=== PATIENT | male | born 1985 | race Two or more races ===

== ENCOUNTER 2023-02-23 18:57 | Emergency (ER) | payer OTHER, SELFPAY ==
--- NOTE | ~2023-02-23 | CT_ITS ---
EXAMINATION: CT ABDOMEN AND PELVIS WITH CONTRAST CLINICAL INFORMATION: Epigastric pain. History of EtOH. COMPARISON: None available. TECHNIQUE: Multidetector volumetric images were obtained from the superior aspect of the liver through the pubic symphysis following administration 85 mL of Omnipaque 350 intravenous contrast. Sagittal and coronal reformatted images were obtained on the technologist's workstation. Oral contrast: No This CT examination was performed using dose optimization techniques as appropriate, variously including the following: *Automated exposure control *Adjustment of mA and/or kV according to patient size (this includes techniques or standardized protocols for targeted exams where dose is matched to indication/reason for exam; i.e. extremities or head) *Use of iterative reconstruction technique DLP: 668 mGy-cm FINDINGS: LUNG BASES: The visualized lung bases are unremarkable. LIVER, GALLBLADDER, AND BILIARY TREE: Nodular hepatic Contour with normal attenuation and size. Trace perihepatic ascites. No biliary ductal dilatation or focal lesion. The gallbladder is contracted with no evidence of radiopaque gallstones, gallbladder wall thickening, or obvious pericholecystic inflammatory changes. PANCREAS: Unremarkable. SPLEEN: Enlarged spleen measuring 17 cm CC dimension. No focal lesion. ADRENAL GLANDS: Unremarkable. KIDNEYS AND URETERS: The kidneys are normal in size, shape, and attenuation. No hydronephrosis, hydroureter, or calculi seen. No perinephric stranding. BLADDER: Unremarkable. GASTROINTESTINAL TRACT: Prominent paraesophageal varices. The stomach is unremarkable. Normal caliber small bowel. No obstruction. No colonic wall thickening or acute abnormality seen. No free air. ABDOMINAL WALL: No significant hernia is appreciated. LYMPH NODES: Normal. VASCULAR: Prominent varices throughout the abdomen. The portal vein is patent. PELVIC VISCERA: The prostate and seminal vesicles are unremarkable. OSSEOUS STRUCTURES: No acute or suspicious osseous abnormality. Bilateral L5 pars defects. Bilateral femoral head avascular necrosis. CT/CT abdomen pelvis w IV con IMPRESSION: 1. Cirrhotic liver with sequela of portal hypertension including splenomegaly and prominent varices. 2. No acute findings in the abdomen or pelvis. No inflammatory changes. 3. Bilateral femoral head avascular necrosis. Fleischner guidelines were followed.
[2023-02-23 19:09] VITALS: BP 131/71; PULSE 112; RESP 18; TEMP 36.9; O2SAT 97; BMI 31.3
--- NOTE | 2023-02-23 19:12 | ED.GENADULT ---
HPI - General Adult General Chief complaint: Abdominal Pain Stated complaint: Hernia? abd pain/burning Time Seen by Provider: 02/23/23 20:54 History of Present Illness HPI narrative: Seen by Dr. Magana Related Data Allergies Allergy/AdvReac Type Severity Reaction Status Date / Time tramadol Allergy Hives Verified 02/23/23 19:09 [facility] Social History Social History Alcohol intake: former Smoked in Last 30 Days: No Use of substances other than those prescribed or required for medical reasons: No Advance Directives: No Advance Directives Information Provided: No Physical Exam ED Vital Signs: BMI result Body Mass Index 31.3 Course Course Course Narrative: RME: 37 yold male presents to the ED for periumbilical pain and thinks he has a hernia. patient states normal bowel movement. Denies any nausea or Symptoms. labs ordered. Medications Administered Discontinued Medications Generic Name Dose Route Start Last Admin Trade Name Freq PRN Reason Stop Dose Admin Sodium Chloride 1,000 mls @ 999 mls/hr 02/23/23 21:15 02/23/23 23:12 Ns IV 02/23/23 22:15 Infused .Q1H1M LOUISE Infusion Iohexol 100 ml 02/23/23 21:29 02/23/23 21:29 Iohexol 350 Mg/Ml 100 Ml Infus..Btl IV 02/23/23 21:30 85 ml ONCE ONE Administration Medical Decision Making Lab Data 02/23/23 19:59 02/23/23 19:59 Labs: Lab Results 02/23/23 02/23/23 02/23/23 Range/Units 19:59 19:59 20:01 WBC 2.4 L (4.8-10.8) X10*3/uL RBC 3.88 L (4.60-5.80) X10*6/uL Hgb 11.6 L (14.0-18.0) g/dl Hct 34.7 L (42.0-52.0) % MCV 89.4 (80.0-98.0) fL MCH 29.9 (27.0-33.0) pg MCHC 33.4 (31.0-36.0) g/dl RDW 16.6 H (11.0-16.0) % Plt Count 35 L (160-400) X10*3/uL MPV 11.0 (9.4-12.4) fL Immature Gran % (Auto) 0.4 (0.0-0.4) % Neut % (Auto) 53.7 (45-73) % Lymph % (Auto) 24.6 (20-40) % [place] % (Auto) 18.4 H (2-11) % Eos % (Auto) 2.5 (0-4) % Baso % (Auto) 0.4 (0-2) % Lymph # (Auto) 0.6 L (1.2-4.9) X10*3/uL [place] # (Auto) 0.5 (0.1-1.2) X10*3/uL Eos # (Auto) 0.1 (0.0-0.4) X10*3/uL Baso # (Auto) 0.0 (0.0-0.2) X10*3/uL Abs Immat Gran (auto) 0.01 (0.00-0.03) X10*3/uL Absolute Neuts (auto) 1.3 L (2.0-8.3) x10*3/uL Absolute Nucleated RBC 0.000 (0.0-0.012) X10*3/uL Nucleated RBC % (auto) 0.0 (0.0-0.2) /100WBC Smear Tech's Comments VERIFIED Smear Path Review SEE NOTE Sodium 140 (135-145) mmol/L Potassium 4.1 (3.3-5.1) mmol/L Chloride 110 H (96-108) mmol/L Carbon Dioxide 22 (22-29) mmol/L Anion Gap 12 (12-20) BUN 8 L (9-16) mg/dL Creatinine 0.72 (0.5-1.4) mg/dL Estim Creat Clear Calc 150.8 Estimated GFR > 60 Random Glucose 91 (60-115) mg/dL Calcium 8.9 (8.4-10.2) mg/dL Total Bilirubin 3.6 H (0.0-1.0) mg/dL AST 89 H (5-37) U/L ALT 43 H (0-40) U/L Alkaline Phosphatase 161 H (39-117) U/L Total Protein 7.0 (6.5-8.0) g/dL Albumin 3.3 L (3.5-5.0) g/dL Lipase 23 (8-78) U/L Urine Color Dark Yellow Urine Appearance Clear Urine pH 8.5 (5.0-9.0) Ur Specific [place] 1.015 (1.005-1.025) Urine Protein Negative (Neg-Trace) mg/dL Urine Glucose (UA) Negative (Negative) mg/dL Urine Ketones Negative (Negative) mg/dL Urine Blood Negative (Negative) Urine Nitrite Negative (Negative) Ur Leukocyte Esterase Trace H (Negative) Urine RBC 0-2 (0-2) /HPF Urine WBC 0-5 (0-5) /HPF Ur Squamous Epith Cells 0-2 (0-2) /HPF Urine Bacteria None Seen (None Seen) Hyaline Casts 0-2 (0-2) /LPF Discharge Plan Discharge Clinical Impression: Abdominal pain, Cirrhosis of liver Patient Disposition: Home, Self-Care Instructions: Cirrhosis (ED), Abdominal Pain (ED) Referrals: Lucy Bryant [Other] Interventions: ED Discharge Assessment Last Done: 02/23/23 23:18 Discharge Date/Time: 02/23/23 23:19
[2023-02-23 19:44] VITALS: BP 121/76; PULSE 92; RESP 18; O2SAT 96
--- NOTE | 2023-02-23 19:45 | PC.NURSE ---
Assumed care of pt. pt sitting on stretcher, c/o lennie umbilical pain 8/10. on assessment, noted small lump around pumbilicus, able to be reduced without difficulty. pt with hx of alcohol cirrhosis, gastric complications. Pt looking up most recent labs since primary care in [place]. VSS, pending labs and urine.
[2023-02-23 19:50] VITALS: BP 123/68; PULSE 90; RESP 20; TEMP 36.8; O2SAT 97
[2023-02-23 20:07] LABS: Basophils Percent Auto 0.4 % (0-2); Eosinophils Absolute Auto 0.1 X10*3/uL (0.0-0.4); Eosinophils Percent Auto 2.5 % (0-4); Hematocrit 34.7 % (42.0-52.0); Hemoglobin 11.6 g/dl (14.0-18.0); Imm Gran Abs Auto 0.01 X10*3/uL (0.00-0.03); Imm Gran Pct Auto 0.4 % (0.0-0.4); Lymphocytes Absolute Auto 0.6 X10*3/uL (1.2-4.9); Lymphocytes Percent Auto 24.6 % (20-40); MANUAL DIFF FLAG SCAN; Mean Corpuscular HGB Conc 33.4 g/dl (31.0-36.0); Mean Corpuscular Hemoglobin 29.9 pg (27.0-33.0); Mean Corpuscular Volume 89.4 fL (80.0-98.0); Monocytes Absolute Auto 0.5 X10*3/uL (0.1-1.2); Monocytes Percent Auto 18.4 % (2-11); Neutrophils Absolute Auto 1.3 x10*3/uL (2.0-8.3); Neutrophils Percent Auto 53.7 % (45-73); Red Blood Count 3.88 X10*6/uL (4.60-5.80); Red Cell Distribution Width 16.6 % (11.0-16.0); SCAN SMEAR FLAG 1
[2023-02-23 20:08] LABS: Appearance Urine Clear; Color Urine Dark Yellow; Glucose Urine UA Negative (Negative); Leukocyte Esterase Urine Trace (Negative); Nitrite Urine Negative (Negative); PH 8.5 (5.0-9.0); Specific Gravity - Urine 1.015 (1.005-1.025); UMIC TRIGGER UACC YES; Urine Blood Negative (Negative); Urine Ketones Negative (Negative); Urine Protein Negative (Neg-Trace)
[2023-02-23 20:11] LABS: Bacteria Urine None Seen (None Seen); Hyaline Casts Urine 0-2 /LPF (0-2); RBC Urine 0-2 /HPF (0-2); Squamous Epithelial Cell Urine 0-2 /HPF (0-2); WBC Urine 0-5 /HPF (0-5)
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
[2023-02-23 20:37] LABS: Platelet Count 35 X10*3/uL (160-400); White Blood Count 2.4 X10*3/uL (4.8-10.8)
[2023-02-23 20:39] LABS: SLIDE REVIEW VERIFIED
[2023-02-23 20:46] LABS: Albumin Level 3.3 g/dL (3.5-5.0); Anion Gap 12 (12-20); Calcium 8.9 mg/dL (8.4-10.2); Carbon Dioxide 22 mmol/L (22-29); Chloride 110 mmol/L (96-108); Potassium 4.1 mmol/L (3.3-5.1); Sodium 140 mmol/L (135-145)
--- NOTE | 2023-02-23 20:54 | ED_ITS ---
HPI - Abdominal Pain General Chief Complaint: Abdominal Pain Stated Complaint: Hernia? abd pain/burning Time Seen by Provider: 02/23/23 20:54 History of Present Illness HPI narrative: Patient is a 37-year-old male presents today with having abdominal pain he had the abdominal pain is in the epigastric area. Not associated with any vomiting. It has been on and off. It has been ongoing for a few weeks. No specific trigger. Patient had a long history of drinking has not drank alcohol about a week. Patient denies any abdominal surgery in the past. Is passing gas. Had some mild nausea associated with these symptoms. He is from home. Not associated with chest pain shortness of breath or diaphoresis. No new medication. Related Data Allergies Allergy/AdvReac Type Severity Reaction Status Date / Time tramadol Allergy Hives Verified 02/23/23 19:09 Review of Systems Review of Systems Okay no fever no chills positive abdominal pain in the epigastric area Yes all other systems are reviewed and are negative PMFSH Past Medical History Attestation statement: The following information was validated with the patient. Social History Social History Alcohol intake: former Smoked in Last 30 Days: No Use of substances other than those prescribed or required for medical reasons: No Advance Directives: No Advance Directives Information Provided: No Physical Exam ED Vital Signs: Vital Signs - 24 hr 02/23/23 19:09 02/23/23 19:44 02/23/23 19:50 Temperature 98.5 F 98.3 F Pulse Rate 112 H 92 90 Respiratory Rate 18 18 20 Blood Pressure 131/71 121/76 123/68 Pulse Oximetry 97 96 97 Oxygen Delivery Method Room Air Room Air BMI result Body Mass Index 31.3 Appearance: Alert. Oriented X3. No acute distress. Eyes: Pupils equal, round and reactive to light. ENT: Pharynx normal. Neck: Normal inspection. Neck supple. No lymph nodes noted. No crepitus CVS: Normal heart rate and rhythm. Pulses normal. Normal S1 and S2 Respiratory: No respiratory distress. Breath sounds normal. No Wheezing. No r ales Abdomen: Soft and nontender. No rigidity. No distention. good BS x4 Skin: Skin warm and dry. Normal skin color. Normal skin turgor. Extremities: No lower extremity edema. Neurovascular intact to all extremities. No Lacerations. No Rash Neuro: Oriented X 3. No motor deficit. No sensory deficit. Moving all extermities. No slurred speech Medical Decision Making Medical Decision Making [facility] Narrative: Patient is 37 years old presents today with having epigastric pain with a history of liver cirrhosis. Differential include gallbladder issue, pancreatitis, gastritis, hernia. Patient stated he had a mass in the epigastric area is subsequently disappeared. It is not associated with any nausea vomiting. CT scan of the abdomen showed no acute evidence of obstruction, abscess, perforation. Patient is from home. Patient's LFTs are elevated with elevated bilirubin of 3.6. AST ALT that was elevated AST more elevated than ALT consistent with previous alcohol use. Patient's lab from [facility] was reviewed. Patient had on his phone. It showed an elevated bilirubin in the 2.5 range. S ignificantly elevated AST and ALT as well. This is more likely from chronic alcohol use. Patient urine showed no signs of infection. Will discharge patient home. Close follow-up on an outpatient basis. Differential Diagnosis Gallbladder issue, pancreatitis, gastritis, obstruction, abscess, perforation Lab Data [facility] Lab Attestation statement: I reviewed the patient's lab results. 02/23/23 19:59 02/23/23 19:59 Labs: Lab Results 02/23/23 02/23/23 02/23/23 Range/Units 19:59 19:59 20:01 WBC 2.4 L (4.8-10.8) X10*3/uL RBC 3.88 L (4.60-5.80) X10*6/uL Hgb 11.6 L (14.0-18.0) g/dl Hct 34.7 L (42.0-52.0) % MCV 89.4 (80.0-98.0) fL MCH 29.9 (27.0-33.0) pg MCHC 33.4 (31.0-36.0) g/dl RDW 16.6 H (11.0-16.0) % Plt Count 35 L (160-400) X10*3/uL MPV 11.0 (9.4-12.4) fL Immature Gran % (Auto) 0.4 (0.0-0.4) % Neut % (Auto) 53.7 (45-73) % Lymph % (Auto) 24.6 (20-40) % [place] % (Auto) 18.4 H (2-11) % Eos % (Auto) 2.5 (0-4) % Baso % (Auto) 0.4 (0-2) % Lymph # (Auto) 0.6 L (1.2-4.9) X10*3/uL [place] # (Auto) 0.5 (0.1-1.2) X10*3/uL Eos # (Auto) 0.1 (0.0-0.4) X10*3/uL Baso # (Auto) 0.0 (0.0-0.2) X10*3/uL Abs Immat Gran (auto) 0.01 (0.00-0.03) X10*3/uL Absolute Neuts (auto) 1.3 L (2.0-8.3) x10*3/uL Absolute Nucleated RBC 0.000 (0.0-0.012) X10*3/uL Nucleated RBC % (auto) 0.0 (0.0-0.2) /100WBC Smear Tech's Comments VERIFIED Sodium 140 (135-145) mmol/L Potassium 4.1 (3.3-5.1) mmol/L Chloride 110 H (96-108) mmol/L Carbon Dioxide 22 (22-29) mmol/L Anion Gap 12 (12-20) BUN 8 L (9-16) mg/dL Creatinine 0.72 (0.5-1.4) mg/dL Estim Creat Clear Calc 150.8 Estimated GFR > 60 Random Glucose 91 (60-115) mg/dL Calcium 8.9 (8.4-10.2) mg/dL Total Bilirubin 3.6 H (0.0-1.0) mg/dL AST 89 H (5-37) U/L ALT 43 H (0-40) U/L Alkaline Phosphatase 161 H (39-117) U/L Total Protein 7.0 (6.5-8.0) g/dL Albumin 3.3 L (3.5-5.0) g/dL Lipase 23 (8-78) U/L Urine Color Dark Yellow Urine Appearance Clear Urine pH 8.5 (5.0-9.0) Ur Specific [place] 1.015 (1.005-1.025) Urine Protein Negative (Neg-Trace) mg/dL Urine Glucose (UA) Negative (Negative) mg/dL Urine Ketones Negative (Negative) mg/dL Urine Blood Negative (Negative) Urine Nitrite Negative (Negative) Ur Leukocyte Esterase Trace H (Negative) Urine RBC 0-2 (0-2) /HPF Urine WBC 0-5 (0-5) /HPF Ur Squamous Epith Cells 0-2 (0-2) /HPF Urine Bacteria None Seen (None Seen) Hyaline Casts 0-2 (0-2) /LPF Radiology Impression Discussion of test interpretation with radiology: I have reviewed the radiologist's reading. Medications Administered Discontinued Medications Generic Name Dose Route Start Last Admin Trade Name Freq PRN Reason Stop Dose Admin Sodium Chloride 1,000 mls @ 999 mls/hr 02/23/23 21:15 02/23/23 21:18 Ns IV 02/23/23 22:15 999 mls/hr .Q1H1M LOUISE Administration Iohexol 100 ml 02/23/23 21:29 02/23/23 21:29 Iohexol 350 Mg/Ml 100 Ml Infus..Btl IV 02/23/23 21:30 85 ml ONCE ONE Administration Discharge Plan Discharge Clinical Impression: Abdominal pain, Cirrhosis of liver Patient Disposition: Home, Self-Care Instructions: Abdominal Pain (ED), Cirrhosis (ED) Referrals: Lucy Bryant [Other]
[2023-02-23 20:58] LABS: Glucose Random 91 mg/dL (60-115)
[2023-02-23 21:04] LABS: Alanine Aminotransferase 43 U/L (0-40); Alkaline Phosphatase 161 U/L (39-117); Aspartate Amino Transferase 89 U/L (5-37); Bilirubin Total 3.6 mg/dL (0.0-1.0); Blood Urea Nitrogen 8 mg/dL (9-16); Creatinine Clr Calc Pharmacy 150.8; Estimated Glomerular Filt Rate > 60; Lipase 23 U/L (8-78)
[2023-02-23] MEDS: 0.9 % Sodium Chloride 1,000 ML 999 ML IV (21:18)
[2023-02-23] MEDS: iohexoL 350 MG/ML 100 ML INFUS..BTL IV (21:29)
== END 2023-02-23 23:19 | disposition home or self-care (01) ==
PROVIDERS: Physician Assistant; Emergency Provider Emergency Medicine Emergency Medical Services; PCP Internal Medicine
DX: K74.60 Unspecified cirrhosis of liver (principal); R10.30 Lower abdominal pain, unspecified; Z79.899 Other long term (current) drug therapy
CPT/HCPCS: 36415; 74177; 80053; 81001; 83690; 85025; 96360; 96361; 99284; Q9967

== ENCOUNTER 2023-04-22 08:16 | Emergency (ER) | payer OTHER, SELFPAY ==
--- NOTE | 2023-04-22 | ECG_ITS ---
Test Reason : FALL Blood Pressure : / mmHG Vent. Rate : 077 BPM Atrial Rate : 077 BPM P-R Int : 158 ms QRS Dur : 158 ms QT Int : 504 ms P-R-T Axes : 042 -23 009 degrees QTc Int : 570 ms Normal sinus rhythm with sinus arrhythmia Right bundle branch block Abnormal ECG No previous ECGs available Referred By: Julieth Estrada Electronically Signed By:Jamshid Mata
--- NOTE | ~2023-04-22 | CT_ITS ---
CT ANGIOGRAM NECK WITH CONTRAST CT ANGIOGRAM BRAIN WITH CONTRAST CLINICAL INFORMATION: Hearing loss/nystagmus. COMPARISON: Head CT 04/22/2023. TECHNIQUE: Test bolus sequences followed by intravenous administration 70 mL of Omnipaque 350. Helical imaging was performed in the axial plane from the thoracic inlet to the skull vertex. Delayed postcontrast imaging of the head was also performed. The data was processed at the sleep lab technologist workstation for generation of MIP sequences. Angled MIPs and volume rendered reformatted images were also generated at an offline 3D workstation under concurrent supervision. Stenoses are assessed in accordance with NASCET criteria unless otherwise indicated. This CT examination was performed using dose optimization techniques as appropriate, variously including the following: *Automated exposure control *Adjustment of mA and/or kV according to patient size (this includes techniques or standardized protocols for targeted exams where dose is matched to indication/reason for exam; i.e. extremities or head) *Use of iterative reconstruction technique FINDINGS: BRAIN: [There is no intracranial hemorrhage, hydrocephalus, extra-axial surface collection, midline shift, or other herniation pattern. Albrecht to white matter differentiation is diffusely maintained without evidence of an evolved acute territorial infarct. The basilar cisterns are preserved. No significant soft tissue abnormality. No acute osseous abnormality. The paranasal sinuses and the mastoid air cells are well aerated.] CERVICAL SOFT TISSUES AND LUNG APICES: [Unremarkable. ] NECK CTA: [There is a classic 3 vessel configuration of the aortic arch. Proximal arch vessels are non-stenotic. The vertebral arteries are codominant. No significant ostial stenosis is visualized on either side. Both vertebral arteries are widely patent throughout their extracranial cervical course. Both common and internal carotid arteries are normal in course and caliber.] BRAIN CTA: [There is normal opacification of major intracranial arteries. No focal flow-limiting stenosis nor discrete proximal large artery occlusion. Limited assessment of the intracranial arterial vasculature at the high convexity due to motion artifact. No aneurysm. Timing of the contrast bolus allows assessment of the major dural venous sinuses, which all opacify normally] CT/CT angio head neck IMPRESSION: Unremarkable CTA of the head and neck. Limited assessment of the intracranial arterial vasculature at the high convexity due to motion artifact. Findings confirmed with Julieth Estrada APRN at 1:05pm on 04/22/2023.
--- NOTE | ~2023-04-22 | MR_ITS ---
EXAMINATION: MR BRAIN WITHOUT AND WITH CONTRAST CLINICAL INFORMATION: New ataxia and left-sided hearing loss, history of liver disease COMPARISON: CT angiography head and neck 04/22/2023 TECHNIQUE: Multiplanar, multisequence imaging was obtained without and with intravenous contrast. Intravenous contrast: 9 mL Gadavist. FINDINGS: There is T1 hyperintensity within the left membranous labyrinth involving the cochlea and vestibule with loss of the normal fluid signal intensity in the cochlea and slightly attenuated fluid signal intensity of the vestibule on the high-resolution axial FIESTA sequence. Please note the presence of intrinsic T1 shortening limits assessment for intralabyrinthine enhancement. The right VII and VIII cranial nerve complex is normal normal. No cerebellopontine angle lesion. No acute infarct. No acute intracranial hemorrhage or extra-axial fluid collection. Mild lateral and third ventriculomegaly suggestive of mild global cerebral volume loss greater than expected for age. Nonspecific mild T2 FLAIR hyperintensity within the peritrigonal white matter. Symmetric intrinsic T1 shortening within the bilateral basal ganglia and cerebral peduncles. No abnormal intraparenchymal or leptomeningeal enhancement. No mass effect or herniation pattern. Normal appearance of the midline structures. Normal appearance of the imaged intracranial arterial and dural venous sinus flow voids. The orbits are grossly unremarkable. Mild patchy paranasal sinus mucosal disease most pronounced in the ethmoid air cells. The craniocervical junction is intact. Patchy T1 hypointense marrow signal and diffusion signal abnormality throughout the osseous structures may be related to hypercellularity of hematopoetic marrow, which can be seen in the setting of anemia or other marrow infiltrative process and can be correlated with CBC. MR/MR head/brain wo/w con IMPRESSION: 1. T1 hyperintensity within the left membranous labyrinth involving the cochlea and vestibule with corresponding attenuated fluid signal intensity on the high-resolution axial FIESTA sequence most compatible with intralabyrinthine hemorrhage. 2. Mild global cerebral volume loss for age. 3. Symmetric intrinsic T1 shortening within the bilateral basal ganglia and cerebral peduncles related to manganese deposition in the setting of known chronic liver disease. 4. Patchy T1 hypointense marrow signal and diffusion signal abnormality throughout the osseous structures may be related to hypercellularity of hematopoetic marrow, which can be seen in the setting of anemia or other marrow infiltrative process and can be correlated with CBC.
--- NOTE | ~2023-04-22 | CT_ITS ---
EXAMINATION: CT HEAD WITHOUT CONTRAST CLINICAL INFORMATION: Dizziness, hearing changes, status post fall. COMPARISON: None available. TECHNIQUE: Contiguous axial imaging was performed from the skull base to vertex without intravenous administration of contrast. Coronal and sagittal reformatted images were obtained. This CT examination was performed using dose optimization techniques as appropriate, variously including the following: *Automated exposure control *Adjustment of mA and/or kV according to patient size (this includes techniques or standardized protocols for targeted exams where dose is matched to indication/reason for exam; i.e. extremities or head) *Use of iterative reconstruction technique DLP: 640 mGy-cm FINDINGS: There is mild widening of the cortical sulci and associated ventriculomegaly. The lateral ventricles are symmetrical. The third and fourth ventricles are in their normal midline position. The basilar and prepontine cisterns are unremarkable. There is no acute intra or extracerebral abnormality. There is no mass effect or midline shift. Sections through the bony calvarium are unremarkable. The orbits are intact. The paranasal sinuses show mild mucosal thickening in the ethmoid sinuses, right greater than left. The mastoid air cells are clear. Hypoaeration of the mastoid air cells bilaterally. CT/CT head/brain wo IV con IMPRESSION: No acute intracranial pathology.
[2023-04-22 08:25] VITALS: BP 112/54; BP 120/80; PULSE 80; PULSE 90; RESP 16; TEMP 36.8; O2SAT 97; O2SAT 98; BMI 32.1
[2023-04-22 08:40] LABS: Glucose, Whole Blood 144 mg/dL (60-115)
--- NOTE | 2023-04-22 08:42 | PC.NURSE ---
BIBA from home. A & Ox3. Pt reports falling this morning w/ sudden onset of loss of hearing in left ear. No LOC / HS. Reported 5/10 headache r/t fall this morning. Neuros intact. Pt reports daily drinker, last drink few beers last night. Hx of cirrhosis. POC 144. VSS.
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
[2023-04-22 09:59] VITALS: BP 121/77; PULSE 77; RESP 17; TEMP 36.8; O2SAT 95
[2023-04-22 10:24] LABS: Basophils Percent Auto 0.5 % (0-2); Hematocrit 34.1 % (42.0-52.0); Hemoglobin 11.3 g/dl (14.0-18.0); Imm Gran Abs Auto 0.02 X10*3/uL (0.00-0.03); Lymphocytes Absolute Auto 0.3 X10*3/uL (1.2-4.9); Lymphocytes Percent Auto 15.4 % (20-40); MANUAL DIFF FLAG SCAN; Mean Corpuscular HGB Conc 33.1 g/dl (31.0-36.0); Mean Corpuscular Hemoglobin 29.4 pg (27.0-33.0); Mean Corpuscular Volume 88.8 fL (80.0-98.0); Monocytes Absolute Auto 0.2 X10*3/uL (0.1-1.2); Monocytes Percent Auto 10.8 % (2-11); Neutrophils Absolute Auto 1.4 x10*3/uL (2.0-8.3); Neutrophils Percent Auto 71.3 % (45-73); PLT CLUMP 1; Red Blood Count 3.84 X10*6/uL (4.60-5.80); SCAN SMEAR FLAG 1
[2023-04-22 10:44] LABS: Platelet Count 20 X10*3/uL (160-400); SLIDE REVIEW VERIFIED
[2023-04-22 10:45] LABS: Ammonia 61 umol/L (13-55)
[2023-04-22 10:48] LABS: Alanine Aminotransferase 81 U/L (0-40); Albumin Level 3.4 g/dL (3.5-5.0); Alkaline Phosphatase 150 U/L (39-117); Anion Gap 12 (12-20); Aspartate Amino Transferase 205 U/L (5-37); Bilirubin Total 3.9 mg/dL (0.0-1.0); Blood Urea Nitrogen 9 mg/dL (9-16); Calcium 8.9 mg/dL (8.4-10.2); Carbon Dioxide 24 mmol/L (22-29); Chloride 106 mmol/L (96-108); Creatinine Clr Calc Pharmacy 157.1; Estimated Glomerular Filt Rate > 60; Glucose Random 152 mg/dL (60-115); Lipase 27 U/L (8-78); Sodium 138 mmol/L (135-145); Total Protein 7.7 g/dL (6.5-8.0)
[2023-04-22] MEDS: iohexoL 350 MG/ML 100 ML INFUS..BTL IV (12:33)
[2023-04-22 13:27] LABS: INTERNATIONAL NORM RATIO 1.4 (0.9-1.1); Prothrombin Time 16.5 SEC (11.1-13.3)
[2023-04-22 13:40] VITALS: BP 137/75; PULSE 84; RESP 13; O2SAT 97
[2023-04-22 13:58] LABS: Appearance Urine Clear; Color Urine Dark Yellow; Glucose Urine UA Negative (Negative); Leukocyte Esterase Urine Negative (Negative); Nitrite Urine Negative (Negative); PH 8.5 (5.0-9.0); Specific Gravity - Urine >= 1.030 (1.005-1.025); Urine Blood Negative (Negative); Urine Ketones Negative (Negative); Urine Protein Trace mg/dL (Neg-Trace)
--- NOTE | 2023-04-22 14:32 | PC.NURSE ---
Patient is sleep, will assess pain when patient wakes up
[2023-04-22 16:24] VITALS: BP 140/74; PULSE 71; RESP 13; TEMP 36.7; O2SAT 98
[2023-04-22 19:19] LABS: Ethanol < 10 mg/dL
[2023-04-22 19:22] LABS: Magnesium 1.6 mg/dL (1.6-2.6)
--- NOTE | 2023-04-22 20:03 | PC.NURSE ---
Pt in MRI at this time, medication administration is delayed.
[2023-04-22] MEDS: 0.9 % Sodium Chloride 1,000 ML 999 ML IV (21:06)
[2023-04-22] MEDS: Meclizine HCl 25 MG TABLET 50 MG PO (21:07)
--- NOTE | 2023-04-22 21:10 | PC.NURSE ---
Pt medicated per nov. Fluids started. plan of care ongoing.
[2023-04-22 21:25] LABS: Amphetamine Screen Urine Not Detected (Not Detect); Barbiturates, Urine Not Detected (Not Detect); Benzodiazepines Screen Urine Not Detected (Not Detect); Cannabinoid Screen Urine Not Detected (Not Detect); Cocaine Screen Urine Not Detected (Not Detect); Fentanyl, urine Not Detected (Not Detect); Opiate Screen Urine Not Detected (Not Detect); Phencyclidine Screen Urine Not Detected (Not Detect)
[2023-04-22 21:45] VITALS: BP 151/77; PULSE 90; RESP 20; TEMP 37.1; O2SAT 99
--- NOTE | 2023-04-22 22:38 | PC.NURSE ---
Attempted to ambulate patient. Pt stood up and reported a lot of dizziness. Pt was very wobbly on his feet and was unable to take more than 3 steps. Pt was assisted back to bed, PA aware. Per PA, pt may stay with us longer.
--- NOTE | 2023-04-22 22:56 | PC.NURSE ---
Pt requesting food and drink, given both. Pt also reporting 8/10 headache, provider aware. plan of care on going.
[2023-04-22] MEDS: diazePAM 2 MG TABLET 4 MG PO (23:13)
[2023-04-22] MEDS: oxyCODONE HCl Immed Release 5 MG TABLET PO (23:13)
--- NOTE | 2023-04-22 23:22 | PC.NURSE ---
Pt medicated per nov. Plan of care ongoing.
[2023-04-23 02:05] VITALS: BP 139/72; PULSE 89; TEMP 36.9; O2SAT 96
[2023-04-23] MEDS: Meclizine HCl 25 MG TABLET PO ×3 (02:30→13:43)
--- NOTE | 2023-04-23 02:31 | PC.NURSE ---
Pt medicated per mar. No sign of distress. plan of care ongoing.
--- NOTE | 2023-04-23 03:00 | PC.NURSE ---
Report given to Rosemarie FOREMAN in overflow, pt will be moved to bed 2
[2023-04-23 06:00] VITALS: BP 155/80; PULSE 88; RESP 17; TEMP 37.1; O2SAT 97
--- NOTE | 2023-04-23 09:08 | PHA.MEDREC ---
Pharmacy Consult ? Medication Reconciliation Pharmacy has completed the medication reconciliation. spoke with patient who had a list of medications on his phone. He explained that he is not supposed to be taking ibuprofen but will take it if he runs out of the oxycodone or is unable to get it.
--- NOTE | 2023-04-23 09:10 | PC.NURSE ---
Resumed care of patient, pharmacy at bedside to complete medrec, provider notified of PRN pain medication orders, no new orders placed at this time. he is a/ox4. PT came to work with patient/
[2023-04-23 09:32] LABS: COVID-19 Test Negative (Negative); IDNOW Serial# BCCEAD1C
--- NOTE | 2023-04-23 10:30 | MHC.RECOVRN ---
This telegraphic typewriter repairer met with patient, patient presented to ED for RYAN, dizziness, tinnitus. Pt resting on left side, sleeping, awake to verbal command. 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 Pt reports in the past, drinking hard alcohol, 20 nips daily for years.. Pt states 2 years ago, April 2021, admitted to hospital for jaundice. Pt states upon d/c, 6 months recovery time [id number]. Pt reports no hx of treatment, no detox, CSS/TSS. Pt reports had tried naltrexone, reports felt like a zombie on it . Pt states currently prescribed Campral by PCP. Pt reports taking Campral 4 times per week, pt states does not take Campral on days is drinking. Pt reports no hx of seizures, AVH. Pt reports hx of ETOH withdrawal s/s tremor, N/V. Pt currently denies ETOH withdrawal. Pt reports feels better after receiving Valium. Pt reports last Friday increased drinking, Friday drank several beers to take the edge off . Pt reports last ETOH use Friday. Pt reports has support system related to recovery, pt reports has not found AA helpful. Addiction/Recovery team to return at bedside to review recovery supports, once pt medically cleared.
[2023-04-23] MEDS: Furosemide 20 MG TABLET PO (11:42)
[2023-04-23] MEDS: Magnesium Oxide 400 MG TABLET PO (11:42)
[2023-04-23] MEDS: Folic Acid 1 MG TABLET PO (11:42)
[2023-04-23] MEDS: busPIRone HCl 5 MG TABLET 15 MG PO (13:43)
[2023-04-23] MEDS: Lactulose 20 GM/30 ML SOLUTION PO (13:43)
[2023-04-23] MEDS: rifAXIMin 550 MG TABLET PO (13:43)
[2023-04-23] MEDS: DULoxetine HCl 60 MG CAPSULE.DR PO (13:43)
--- NOTE | 2023-04-23 13:45 | MHC.CM.ED ---
Received case management consult overnight. Patient came to the ER due to loss of balance, loss of hearing in left ear. Work up essentially negative. Physical therapy eval completed. Acute rehab is recommended. Attempted to meet with patient. Patient currently sleeping. No family present. Copy of HCP obtained from [facility]. Referral broadcasted to acute rehabs in the [place] area (patient's listed address) and [facility]. OT eval ordered and pending. Continue to monitor for d/c needs.
[2023-04-23] MEDS: Spironolactone 25 MG TABLET 5 MG PO (14:11)
[2023-04-23 14:49] VITALS: BP 155/71; PULSE 88; RESP 18; TEMP 36.9; O2SAT 98
--- NOTE | 2023-04-23 15:25 | MHC.CM.ED ---
Met with patient in regards to discharge planning. Patient is declining rehab at this time. He will call his uncle for a ride home. Licha FOREMAN and Lulu SEYMOUR aware. Continue to monitor for d/c needs.
== END 2023-04-23 15:42 | disposition home or self-care (01) ==
PROVIDERS: Physician Assistant; Registered Nurse Emergency; Emergency Provider Emergency Medicine
DX: H81.392 Other peripheral vertigo, left ear (principal); K76.9 Liver disease, unspecified; R26.2 Difficulty in walking, not elsewhere classified; R51.9 Headache, unspecified; R11.2 Nausea with vomiting, unspecified; D69.6 Thrombocytopenia, unspecified; Z20.822 Contact with and (suspected) exposure to COVID-19; Z20.828 Contact with and (suspected) exposure to other viral communicable diseases; Z79.899 Other long term (current) drug therapy
CPT/HCPCS: 36415; 70450; 70496; 70498; 70553; 80053; 80307; 81003; 82140; 82947; 83690; 83735; 85025; 85610; 87635; 93005; 96361; 96374; 97161; 97165; 99285; A9585; Q9967

== ENCOUNTER → 2023-04-22 10:06 | Outpatient (BNV) | payer OTHER, SELFPAY | PROVIDERS: Emergency Provider Emergency Medicine; Visit Provider Internal Medicine Cardiovascular Disease | DX: I49.9 Cardiac arrhythmia, unspecified (principal) | CPT/HCPCS: 93010 ==

== ENCOUNTER 2023-08-08 19:46 | Emergency (ER) | payer OTHER, SELFPAY ==
[2023-08-08 19:51] VITALS: BP 124/58; PULSE 98; RESP 16; TEMP 37.3; O2SAT 95; BMI 31.3
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
--- NOTE | 2023-08-08 20:14 | PC.NURSE ---
triage supplemental: patient states for medical issues client has chronic pain, for psych dx depression and anxiety receives meds at [facility] hastn taken meds for three days hx rx cymbalta, buspar, oxycodone, no recent psych admits for one year 2 mos sober but drank some over holiday reports hearing voices over one week ago when i was up for three days contractas for safety here, reports no plan to hurt self.
[2023-08-08 21:12] LABS: MANUAL DIFF FLAG NO
[2023-08-08 21:14] LABS: Basophils Percent Auto 0.7 % (0-2); Eosinophils Absolute Auto 0.1 X10*3/uL (0.0-0.4); Eosinophils Percent Auto 1.6 % (0-4); Hematocrit 39.2 % (42.0-52.0); Hemoglobin 12.8 g/dl (14.0-18.0); Imm Gran Abs Auto 0.01 X10*3/uL (0.00-0.03); Imm Gran Pct Auto 0.2 % (0.0-0.4); Lymphocytes Percent Auto 21.8 % (20-40); Mean Corpuscular HGB Conc 32.7 g/dl (31.0-36.0); Mean Corpuscular Hemoglobin 29.8 pg (27.0-33.0); Mean Corpuscular Volume 91.2 fL (80.0-98.0); Mean Platelet Volume 10.4 fL (9.4-12.4); Monocytes Absolute Auto 0.6 X10*3/uL (0.1-1.2); Monocytes Percent Auto 12.5 % (2-11); Neutrophils Absolute Auto 2.8 x10*3/uL (2.0-8.3); Neutrophils Percent Auto 63.2 % (45-73); Platelet Count 55 X10*3/uL (160-400); Red Cell Distribution Width 15.6 % (11.0-16.0); White Blood Count 4.4 X10*3/uL (4.8-10.8)
[2023-08-08 21:21] LABS: Amphetamine Screen Urine Not Detected (Not Detect); Barbiturates, Urine Not Detected (Not Detect); Benzodiazepines Screen Urine Not Detected (Not Detect); Cannabinoid Screen Urine Not Detected (Not Detect); Cocaine Screen Urine Not Detected (Not Detect); Fentanyl, urine Not Detected (Not Detect); Opiate Screen Urine Not Detected (Not Detect); Phencyclidine Screen Urine Not Detected (Not Detect)
[2023-08-08 21:25] LABS: Ethanol 207 mg/dL
[2023-08-08 21:28] LABS: Alanine Aminotransferase 99 U/L (0-40); Albumin Level 3.6 g/dL (3.5-5.0); Alkaline Phosphatase 134 U/L (39-117); Anion Gap 12 (12-20); Aspartate Amino Transferase 189 U/L (5-37); Bilirubin Total 2.4 mg/dL (0.0-1.0); Blood Urea Nitrogen 10 mg/dL (9-16); Carbon Dioxide 25 mmol/L (22-29); Chloride 111 mmol/L (96-108); Creatinine Clr Calc Pharmacy 144.8; Estimated Glomerular Filt Rate > 60; Glucose Random 109 mg/dL (60-115); Potassium 3.5 mmol/L (3.3-5.1); Sodium 144 mmol/L (135-145); Total Protein 7.5 g/dL (6.5-8.0)
[2023-08-08 21:29] LABS: Acetaminophen LAB < 3 mcg/mL (<30); Salicylate < 5.0 mg/dL (15-30)
[2023-08-08 22:04] LABS: Ammonia 76 umol/L (13-55)
[2023-08-08 22:05] LABS: Appearance Urine Clear; Color Urine Yellow; Glucose Urine UA Negative (Negative); Leukocyte Esterase Urine Negative (Negative); Nitrite Urine Negative (Negative); Specific Gravity - Urine <= 1.005 (1.005-1.025); Urine Blood Negative (Negative); Urine Ketones Negative (Negative); Urine Protein Negative (Neg-Trace)
[2023-08-08 22:18] LABS: Bacteria Urine None Seen (None Seen); Hyaline Casts Urine 0-2 /LPF (0-2); RBC Urine 0-2 /HPF (0-2); Squamous Epithelial Cell Urine 0-2 /HPF (0-2); WBC Urine 0-5 /HPF (0-5)
--- NOTE | 2023-08-08 23:10 | MHC.CARE ---
Pt has a BAL of 207.He won't be able to be assessed by the CARE team until 1:30am.
--- NOTE | 2023-08-09 01:45 | PC.NURSE ---
care team in with pt
[2023-08-09 01:54] VITALS: BP 128/62; PULSE 87; RESP 17; TEMP 37.3; O2SAT 97
--- NOTE | 2023-08-09 05:37 | PC.NURSE ---
pt oob with cane, gait steady, denies any complaints at this time
[2023-08-09 07:33] VITALS: RESP 16
[2023-08-09] MEDS: Folic Acid 1 MG TABLET PO (11:00)
[2023-08-09] MEDS: Thiamine HCL 100 MG TABLET PO (11:00)
[2023-08-09] MEDS: Magnesium Oxide 400 MG TABLET PO (11:00)
[2023-08-09] MEDS: Furosemide 20 MG TABLET PO (11:00)
[2023-08-09] MEDS: Cholecalciferol (Vitamin D3) 25 MCG TABLET 125 MCG PO (11:00)
[2023-08-09] MEDS: oxyCODONE HCl Immed Release 5 MG TABLET PO ×2 (11:01→18:00)
[2023-08-09] MEDS: Lactulose 20 GM/30 ML SOLUTION PO ×3 (11:08→21:00)
[2023-08-09 12:50] LABS: COVID-19 Test Negative (Negative); IDNOW Serial# 08D9AD1C
[2023-08-09 14:43] VITALS: RESP 17
[2023-08-09] MEDS: DULoxetine HCl 60 MG CAPSULE.DR PO (15:52)
[2023-08-09] MEDS: busPIRone HCl 5 MG TABLET 15 MG PO ×2 (15:52→21:00)
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
--- NOTE | 2023-08-09 19:30 | PC.NURSE ---
patient appears to remain asleep at present respirations are even and unlabored appears in no distress.
[2023-08-09 21:10] VITALS: BP 152/76; PULSE 75; RESP 18; TEMP 36.7; O2SAT 97
[2023-08-10] MEDS: oxyCODONE HCl Immed Release 5 MG TABLET PO (02:25)
[2023-08-10] MEDS: QUEtiapine Fumarate 25 MG TABLET PO (02:25)
[2023-08-10 06:00] VITALS: RESP 16
--- NOTE | 2023-08-10 08:55 | PC.NURSE ---
patient is alert and oriented and able to make needs known. Patient has a good appetite and ate 100% of breakfast. Patient is able to ambulate around unit using assistive cane. Patient advocating for discharge. Denies SI/HI. Patient discharged from facility with belongings.
== END 2023-08-10 08:56 | disposition home or self-care (01) ==
PROVIDERS: Emergency Medicine; Physician Assistant; Emergency Provider Emergency Medicine Emergency Medical Services; PCP Internal Medicine
DX: F33.1 Major depressive disorder, recurrent, moderate (principal); R45.851 Suicidal ideations; Z11.52 Encounter for screening for COVID-19; Z20.822 Contact with and (suspected) exposure to COVID-19; Z79.899 Other long term (current) drug therapy
CPT/HCPCS: 36415; 80053; 80143; 80179; 80307; 81001; 82140; 85025; 87635; 99285; S9485